=== PATIENT | male | born 1955 | race African-American/Black ===

== ENCOUNTER 2024-07-13 16:50 | Inpatient (IN) | payer MEDICARE, MEDICAID ==
[~2024-07-13] VITALS: Ht 172.7 cm; Wt 81.7 kg
[~2024-07-13 16:50] MED LIST: CELE100 PO; GABA300S3 PO; LAMO25TA66 PO; LEVE100S PO; MIRT45TA PO; PHEN100C10 PO; PHEN60TA15 PO
[2024-07-13] MEDS ORDERED: LOSA-381 PO (17:44)
[2024-07-13] MEDS ORDERED: CARV3 PO (17:44)
[2024-07-13] MEDS ORDERED: LEVE250T81 PO (17:44)
[2024-07-13] MEDS ORDERED: BISA10SU11 PR (17:44)
[2024-07-13] MEDS ORDERED: CHOL25TA4 PO (17:44)
[2024-07-13] MEDS ORDERED: FOLI-130 PO (17:44)
[2024-07-13] MEDS ORDERED: MELA5TAB40 PO (17:44)
[2024-07-13] MEDS ORDERED: MULT-1203 PO (17:44)
[2024-07-13] MEDS ORDERED: MAGN-169 PO (17:44)
[2024-07-13] MEDS ORDERED: ASCO500 PO (17:44)
[2024-07-13] MEDS ORDERED: THIA100T80 PO (17:44)
[2024-07-13 18:56] LABS: BASOPHILS % (AUTO) 0.5 % (0.0-2.0); EOSINOPHILS % (AUTO) 1.4 % (1.0-6.0); HEMATOCRIT 45.3 % (41-53); HEMOGLOBIN 15.6 g/dL (13.5-17.5); LYMPHOCYTES % (AUTO) 39.4 % (22.0-44.0); MEAN CORPUSCULAR HEMOGLOBIN 32.1 pg (26.0-34.0); MEAN CORPUSCULAR HGB CONC 34.4 G/dL (31.0-37.0); MEAN CORPUSCULAR VOLUME 93 fL (80-100); MONOCYTES # (AUTO) 0.8 K/uL (0.1-1.0); MONOCYTES % (AUTO) 10.2 % (2.0-9.0); NEUTROPHILS # (AUTO) 3.7 K/uL (1.8-7.7); NEUTROPHILS % (AUTO) 48.5 % (40.0-70.0); PLATELET COUNT (AUTO) 190 K/uL (150-450); RED BLOOD CELL COUNT(AUTO) 4.86 MIL/uL (4.50-5.90); RED CELL DISTRIBUTION WIDTH 12.8 % (11.5-14.5); WHITE BLOOD COUNT (AUTO) 7.7 K/uL (4.5-11.0)
[2024-07-13 19:05] LABS: ANION GAP 5 mmol/L (8-16); CALCIUM, TOTAL 8.8 mg/dL (8.8-10.5); CARBON DIOXIDE 28 mmol/L (22-29); CHLORIDE 98 mmol/L (98-107); CREATININE 0.84 mg/dL (0.60-1.30); GLOMERULAR FILTR. RATE CALC > 60 mL/min (>60); GLUCOSE,RANDOM 92 mg/dL (70-110); POTASSIUM 4.3 mmol/L (3.5-5.1); SODIUM SERUM 131 mmol/L (136-145); UREA NITROGEN, BLOOD 20 mg/dL (7-18)
[2024-07-13 19:08] LABS: ALCOHOL, BLOOD (SERUM) < 3 mg/dL (0-10)
[2024-07-13 19:15] LABS: TROPONIN I-HIGH SENSITIVITY 7 ng/L (<76)
[2024-07-13] MEDS ORDERED: LOPERAMIDE HCL 2 MG CAPSULE PO PRN (19:15)
[2024-07-13] MEDS ORDERED: MAG HYDROX/ALUMINUM HYD/SIMETH ES 30 ML SUSPENSION UDCUP PO PRN (19:15)
[2024-07-13] MEDS ORDERED: MAGNESIUM HYDROXIDE SUSPENSION 30 ML UDCUP PO PRN (19:15)
[2024-07-13] MEDS ORDERED: QUEtiapine FUMARATE 100 MG TABLET PO PRN (19:15)
[2024-07-13 19:44] LABS: COVID AG,FIA SOURCE NASAL SWAB
[2024-07-13 19:57] LABS: APPEARANCE,URINE CLEAR (CLEAR); BILIRUBIN,URINE NEGATIVE (NEGATIVE); COLOR,URINE LIGHT YELLOW (YELLOW); GLUCOSE, URINE (UA) NEGATIVE (NEGATIVE); KETONES,URINE NEGATIVE (NEGATIVE); LEUKOCYTE ESTERASE ,URINE NEGATIVE (NEGATIVE); NITRATE,URINE NEGATIVE (NEGATIVE); OCCULT BLOOD,URINE NEGATIVE (NEGATIVE); PH,URINE 6.5 (5.0-8.0); PH,URINE DRUG SCREEN 6.5 (5.0-8.0); PROTEIN,URINE NEGATIVE (NEGATIVE); UROBILINOGEN,URINE <=1.0 mg/dL (<=1.0)
[2024-07-13 19:59] LABS: BACTERIA,URINE Rare /HPF (None Seen); RBC,URINE None Seen /HPF (0-2); SQUAMOUS EPITHELIAL CELL,UR Rare /LPF (None Seen); WBC,URINE 0-2 /HPF (0-5)
[2024-07-13 20:06] LABS: ALCOHOL, URINE DRUG SCREEN NEGATIVE (NEGATIVE); AMPHET/METH SCREEN,URINE POSITIVE (NEGATIVE); BARBITURATE SCREEN, URINE NEGATIVE (NEGATIVE); BENZODIAZEPINES SCREEN,URINE NEGATIVE (NEGATIVE); CANNABINOID SCREEN,URINE POSITIVE (NEGATIVE); COCAINE SCREEN,URINE NEGATIVE (NEGATIVE); METHADONE SCREEN, URINE NEGATIVE (NEGATIVE); OPIATE SCREEN,URINE NEGATIVE (NEGATIVE); PHENCYCLIDINE SCREEN,URINE NEGATIVE (NEGATIVE)
[2024-07-13 20:12] LABS: SARS-COV2 (COVID) ANTIGEN,FIA Negative (Negative)
[2024-07-13] MEDS: MELATONIN 5 MG TABLET PO ONE (20:32)
[2024-07-13 22:10] VITALS: O2SAT 99
[2024-07-13] MEDS: ZOLPIDEM TARTRATE 10 MG TABLET PO PRN (22:14)
[2024-07-14] MEDS: LORazepam 2 MG TABLET PO PRN (00:09)
[2024-07-14 04:07] VITALS: BP 94/67; PULSE 95; RESP 17; TEMP 98.1; O2SAT 97
[2024-07-14 08:35] VITALS: BP 111/72; PULSE 92; RESP 16; TEMP 98; O2SAT 99
[2024-07-14] MEDS: LOSARTAN POTASSIUM 25 MG TABLET PO SCH (09:00)
[2024-07-14] MEDS: THIAMINE 100 MG TABLET PO SCH (09:00)
[2024-07-14] MEDS: ASCORBIC ACID 500 MG TABLET PO SCH (09:00)
[2024-07-14] MEDS: LevETIRAcetam 250 MG TABLET PO SCH (09:00)
[2024-07-14] MEDS: FOLIC ACID 1 MG TABLET PO SCH (09:00)
[2024-07-14] MEDS: MULTIVITAMINS WITH MINERALS, THERAPEUTIC TABLET PO SCH (09:00)
[2024-07-14] MEDS: CHOLECALCIFEROL (VIT D3) 1,000 UNITS [25 MCG] TABLET PO SCH (09:00)
[2024-07-14] MEDS: CARVEDILOL 3.125 MG TABLET PO SCH (09:00)
[2024-07-14 19:50] VITALS: RESP 18
[2024-07-14] MEDS: ACETAMINOPHEN 325 MG TABLET PO PRN (19:53)
[2024-07-14] MEDS: MELATONIN 5 MG TABLET PO SCH (20:01)
[2024-07-14 20:02] VITALS: BP 110/66; PULSE 67; RESP 16; TEMP 97.5; O2SAT 99
[2024-07-15 08:03] VITALS: BP 123/78; PULSE 78; RESP 16; TEMP 97.9; O2SAT 99
[2024-07-15 17:01] VITALS: BP 117/60; PULSE 101; RESP 16
[2024-07-15 21:17] VITALS: BP 119/60; PULSE 89; RESP 16; TEMP 97.3; O2SAT 97
[2024-07-16 09:17] VITALS: BP 125/70; PULSE 92; RESP 18; TEMP 96.1; O2SAT 98
[2024-07-16] MEDS: GuaiFENesin/D-METHORPHAN [SUGAR-FREE] 200-20MG/10 ML SYRUP UDCUP PO PRN (11:25)
[2024-07-16 20:08] VITALS: BP 124/68; PULSE 74; RESP 18; TEMP 98.2; O2SAT 95
[2024-07-17 08:13] VITALS: BP 127/83; PULSE 88; RESP 17; TEMP 97.8; O2SAT 95
[2024-07-17 16:47] VITALS: BP 109/64; PULSE 75; RESP 18
[2024-07-17 20:00] VITALS: BP 111/70; PULSE 79; RESP 18; TEMP 97.9; O2SAT 97
[2024-07-18 08:21] VITALS: BP 136/90; PULSE 85; RESP 18; TEMP 97.8; O2SAT 96
[2024-07-18 16:18] VITALS: BP 126/73; PULSE 77; RESP 18; O2SAT 100
[2024-07-18 20:10] VITALS: BP 131/87; PULSE 65; RESP 18; TEMP 98.5; O2SAT 94
[2024-07-19 08:22] VITALS: BP 128/86; PULSE 70; RESP 18; TEMP 98.6; O2SAT 96
[2024-07-19] MEDS: INFLUENZA VIRUS VACCINE TVS (6MO+) 2024-25/PF 45 MCG/0.5 ML SYRINGE IM. ONE (08:52)
[2024-07-19] MEDS: PNEUMOCOCCAL VACCINE POLYVALENT 0.5 ML SYRINGE [PPSV23] IM. ONE (08:53)
== END 2024-07-19 17:19 | DRG 897 ==
LOC: EMS 16:50 → UNDOADMIN 07-14 02:20 → B2X 07-14 02:20
PROVIDERS: ADMIT Psychiatry & Neurology Psychiatry; ATTEND Psychiatry & Neurology Psychiatry
PROC: GZ52ZZZ Individual Psychotherapy, Cognitive (ICD-10-PCS; principal; 2024-07-14)
PROC: GZHZZZZ Group Psychotherapy (ICD-10-PCS; 2024-07-14)
DX: F15.159 Other stimulant abuse with stimulant-induced psychotic disorder, unspecified (principal); F12.159 Cannabis abuse with psychotic disorder, unspecified; I10 Essential (primary) hypertension; G40.909 Epilepsy, unspecified, not intractable, without status epilepticus; E78.5 Hyperlipidemia, unspecified; G47.00 Insomnia, unspecified; K59.00 Constipation, unspecified; F10.90 Alcohol use, unspecified, uncomplicated; F31.9 Bipolar disorder, unspecified; Y90.9 Presence of alcohol in blood, level not specified; F17.210 Nicotine dependence, cigarettes, uncomplicated; Z20.822 Contact with and (suspected) exposure to COVID-19; Z79.899 Other long term (current) drug therapy
CPT/HCPCS: 80048; 80307; 81001; 84484; 85025; 87081; 87481; 99285; G0480